=== PATIENT | male | born 1965 | race Caucasian/White ===

== ENCOUNTER 2018-02-18 21:08 | Emergency (ER) | payer SELFPAY ==
[2018-02-18] MEDS ORDERED: traMADol TAB* 50 MG PO ONE (21:30)
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
[2018-02-18 22:50] VITALS: BP 135/88
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
== END 2018-02-18 22:45 | disposition home or self-care (01) ==
LOC: ED 21:08
DX: R07.9 Chest pain, unspecified (principal); V49.9XXA Car occupant (driver) (passenger) injured in unspecified traffic accident, initial encounter; Y92.9 Unspecified place or not applicable; M54.9 Dorsalgia, unspecified
CPT/HCPCS: 71250; 99282; A9270-GY

== ENCOUNTER 2022-03-31 07:34 | Inpatient (IN) ==
[2022-03-31 08:34] LABS: ABS Eosinophils 0.2 10^3/ul (0-0.6); ABS Lymphocytes 0.7 10^3/ul (1.0-4.8); ABS Monocytes 0.7 10^3/ul (0-0.8); ABS Neutrophils 6.8 10^3/ul (1.5-7.7); Eosinophil % 2.2 %; Hematocrit 39 % (42-52); Hemoglobin 13.5 g/dL (14.0-18.0); Mean Corpuscular HGB Conc 35 g/dL (31-36); Mean Corpuscular Hemoglobin 31 pg (27-31); Mean Corpuscular Volume 89 fL (80-94); Mean Platelet Volume 7.4 fL (7.4-10.4); Platelet Count 318 10^3/uL (150-450); Red Blood Count 4.42 10^6 /uL (4.18-5.48); Red Cell Distribution Width 13 % (10-15); White Blood Count 8.4 10^3/uL (3.5-10.8)
[2022-03-31 09:07] LABS: Albumin 3.9 g/dL (3.2-5.2); Albumin/Globulin Ratio 1.3 (1-3); C Reactive Protein 154.98 mg/L (<8.01); Calcium 8.8 mg/dL (8.6-10.3); Potassium 4.4 mmol/L (3.5-5.0); Total Bilirubin 0.8 mg/dL (0.2-1.0); Total Protein 6.9 g/dL (6.4-8.9); eGFR CKD-EPI 80.4 (>60)
[2022-03-31 10:50] LABS: Erythrocyte Sed Rate 58 mm/Hr (0-19)
[2022-03-31] MEDS ORDERED: Ondansetron 4 mg VIAL 2 MG/ML 2 ml VIAL IV PRN (10:50)
[2022-03-31] MEDS ORDERED: Ondansetron ODT 4 mg TAB 4 MG TAB PO PRN (10:50)
[2022-03-31] MEDS ORDERED: Magnesium Hydroxide LIQ 30 ML UDC PO PRN (10:50)
[2022-03-31] MEDS ORDERED: Morphine 2 MG/ML SYRINGE IV PRN (10:50)
[2022-03-31] MEDS ORDERED: Lactulose 30 ml UDC PO PRN (10:50)
[2022-03-31] MEDS ORDERED: PHENYLEPHRINE HCL 10 MG PO PRN (10:55)
[2022-03-31] MEDS ORDERED: Vancomycin per Pharmacy 1 EA NOTE FOLLOW UP SCH (11:00)
[2022-03-31] MEDS ORDERED: Vancomycin 1,750 MG in NS 0.9% 500 ml BAG 500 ML IVPB ONE (12:00)
[2022-03-31] MEDS ORDERED: Cefepime 2 GM IV - ED ONCE IV ONE (12:00)
[2022-03-31] MEDS: Lactated Ringers 1000 ml BAG 1,000 ML IV SCH (14:25)
[2022-03-31 15:03] LABS: Body Fluid Mono 19 %; Body Fluid NRBC 7; Body Fluid Total Cells Counted 200; Body Fluid WBC 234 /mcL
[2022-03-31 15:10] LABS: Body Fluid Source Synovial Fluid
[2022-03-31 15:11] LABS: Body Fluid Appearance Clear; Body Fluid Color Yellow
[2022-03-31 16:33] LABS: ABS Eosinophils 0.1 10^3/ul (0-0.6); ABS Lymphocytes 0.9 10^3/ul (1.0-4.8); ABS Monocytes 0.8 10^3/ul (0-0.8); ABS Neutrophils 7.3 10^3/ul (1.5-7.7); Eosinophil % 1.1 %; Hematocrit 39 % (42-52); Hemoglobin 13.3 g/dL (14.0-18.0); Lymphocyte % 9.7 %; Mean Corpuscular HGB Conc 34 g/dL (31-36); Mean Corpuscular Hemoglobin 30 pg (27-31); Mean Corpuscular Volume 89 fL (80-94); Mean Platelet Volume 7.2 fL (7.4-10.4); Platelet Count 296 10^3/uL (150-450); Red Blood Count 4.42 10^6 /uL (4.18-5.48); Red Cell Distribution Width 14 % (10-15); White Blood Count 9.1 10^3/uL (3.5-10.8)
[2022-03-31 16:51] LABS: Activated Partial Thrombo Time 33.8 seconds (26.0-38.0); INR 1.17 (0.86-1.15)
[2022-03-31 17:15] LABS: eGFR CKD-EPI 82.3 (>60)
[2022-03-31] MEDS ORDERED: Heparin 5000 UNITS/ML 1 mL VIAL SUBCUT SCH (21:00)
[2022-03-31] MEDS: Magnesium Hydroxide LIQ 30 ML UDC PO SCH (21:56)
[2022-03-31] MEDS ORDERED: Cefepime 2 GM in Dextrose 2 GM/50 ML BAG IV SCH (23:00)
[2022-04-01] MEDS: Vancomycin 1,250 MG in NS 0.9% 250 ml 250 ML IVPB SCH ×2 (05:33→17:28)
[2022-04-01 07:11] LABS: ABS Eosinophils 0.2 10^3/ul (0-0.6); ABS Lymphocytes 0.7 10^3/ul (1.0-4.8); ABS Monocytes 0.8 10^3/ul (0-0.8); ABS Neutrophils 5.8 10^3/ul (1.5-7.7); Eosinophil % 2.5 %; Hematocrit 36 % (42-52); Hemoglobin 12.4 g/dL (14.0-18.0); Lymphocyte % 9.8 %; Mean Corpuscular HGB Conc 34 g/dL (31-36); Mean Corpuscular Hemoglobin 31 pg (27-31); Mean Corpuscular Volume 90 fL (80-94); Mean Platelet Volume 7.2 fL (7.4-10.4); Platelet Count 305 10^3/uL (150-450); Red Blood Count 4.07 10^6 /uL (4.18-5.48); Red Cell Distribution Width 13 % (10-15); White Blood Count 7.5 10^3/uL (3.5-10.8)
[2022-04-01 08:14] LABS: C Reactive Protein 138.67 mg/L (<8.01); Calcium 8.7 mg/dL (8.6-10.3); Potassium 4.7 mmol/L (3.5-5.0); eGFR CKD-EPI 96.4 (>60)
[2022-04-01] MEDS: Vitamin THERAPEUTIC TAB PO SCH (10:06)
[2022-04-01] MEDS: Magnesium Hydroxide LIQ 30 ML UDC PO SCH ×2 (10:10→22:16)
[2022-04-01] MEDS: Lactated Ringers 1000 ml BAG 1,000 ML IV SCH (11:29)
[2022-04-01 13:06] LABS: ABS Eosinophils 0.2 10^3/ul (0-0.6); ABS Lymphocytes 0.8 10^3/ul (1.0-4.8); ABS Monocytes 0.7 10^3/ul (0-0.8); ABS Neutrophils 5.5 10^3/ul (1.5-7.7); Eosinophil % 2.2 %; Hematocrit 38 % (42-52); Hemoglobin 12.7 g/dL (14.0-18.0); Lymphocyte % 10.7 %; Mean Corpuscular HGB Conc 33 g/dL (31-36); Mean Corpuscular Hemoglobin 30 pg (27-31); Mean Corpuscular Volume 89 fL (80-94); Platelet Count 321 10^3/uL (150-450); Red Blood Count 4.28 10^6 /uL (4.18-5.48); Red Cell Distribution Width 13 % (10-15); White Blood Count 7.2 10^3/uL (3.5-10.8)
[2022-04-01 13:14] LABS: Activated Partial Thrombo Time 34.4 seconds (26.0-38.0); INR 1.13 (0.86-1.15)
[2022-04-01 13:43] LABS: eGFR CKD-EPI 99.3 (>60)
[2022-04-01] MEDS: Heparin 5000 UNITS/ML 1 mL VIAL SUBCUT SCH ×2 (14:09→22:16)
[2022-04-02] MEDS: Lactated Ringers 1000 ml BAG 1,000 ML IV SCH (00:41)
[2022-04-02] MEDS ORDERED: Vancomycin Trough Check NOTE FOLLOW UP ONE (05:30)
[2022-04-02 06:01] LABS: ABS Eosinophils 0.2 10^3/ul (0-0.6); ABS Lymphocytes 1.2 10^3/ul (1.0-4.8); ABS Monocytes 0.7 10^3/ul (0-0.8); ABS Neutrophils 4.4 10^3/ul (1.5-7.7); Eosinophil % 2.9 %; Hematocrit 38 % (42-52); Hemoglobin 12.7 g/dL (14.0-18.0); Lymphocyte % 18.2 %; Mean Corpuscular HGB Conc 34 g/dL (31-36); Mean Corpuscular Hemoglobin 30 pg (27-31); Mean Corpuscular Volume 90 fL (80-94); Mean Platelet Volume 7.1 fL (7.4-10.4); Platelet Count 333 10^3/uL (150-450); Red Blood Count 4.17 10^6 /uL (4.18-5.48); Red Cell Distribution Width 13 % (10-15); White Blood Count 6.6 10^3/uL (3.5-10.8)
[2022-04-02 06:50] LABS: C Reactive Protein 119.1 mg/L (<8.01); Calcium 8.8 mg/dL (8.6-10.3); Potassium 4.6 mmol/L (3.5-5.0); eGFR CKD-EPI 99.7 (>60)
[2022-04-02] MEDS: Vancomycin 1,250 MG in NS 0.9% 250 ml 250 ML IVPB SCH ×2 (07:14→17:28)
[2022-04-02] MEDS: Vitamin THERAPEUTIC TAB PO SCH (08:42)
[2022-04-02] MEDS: Magnesium Hydroxide LIQ 30 ML UDC PO SCH ×2 (08:42→21:49)
[2022-04-02] MEDS: Heparin 5000 UNITS/ML 1 mL VIAL SUBCUT SCH ×2 (08:42→21:49)
[2022-04-03] MEDS: Lactated Ringers 1000 ml BAG 1,000 ML IV SCH ×2 (01:44→13:30)
[2022-04-03 05:31] LABS: ABS Eosinophils 0.3 10^3/ul (0-0.6); ABS Lymphocytes 1.3 10^3/ul (1.0-4.8); ABS Monocytes 0.7 10^3/ul (0-0.8); Eosinophil % 4.2 %; Hematocrit 36 % (42-52); Mean Corpuscular HGB Conc 34 g/dL (31-36); Mean Corpuscular Hemoglobin 30 pg (27-31); Mean Corpuscular Volume 89 fL (80-94); Mean Platelet Volume 7.4 fL (7.4-10.4); Platelet Count 349 10^3/uL (150-450); Red Blood Count 3.98 10^6 /uL (4.18-5.48); Red Cell Distribution Width 13 % (10-15); White Blood Count 6.3 10^3/uL (3.5-10.8)
[2022-04-03 05:33] LABS: ABS Eosinophils 0.3 10^3/ul (0-0.6); ABS Lymphocytes 1.3 10^3/ul (1.0-4.8); ABS Monocytes 0.8 10^3/ul (0-0.8); ABS Neutrophils 4.1 10^3/ul (1.5-7.7); Eosinophil % 4.8 %; Hematocrit 37 % (42-52); Lymphocyte % 19.8 %; Mean Corpuscular HGB Conc 33 g/dL (31-36); Mean Corpuscular Hemoglobin 29 pg (27-31); Mean Corpuscular Volume 89 fL (80-94); Mean Platelet Volume 7.2 fL (7.4-10.4); Nucleated Red Blood Cells % 0.1; Platelet Count 343 10^3/uL (150-450); Red Cell Distribution Width 13 % (10-15); White Blood Count 6.5 10^3/uL (3.5-10.8)
[2022-04-03] MEDS: Vancomycin 1,250 MG in NS 0.9% 250 ml 250 ML IVPB SCH (06:25)
[2022-04-03] MEDS: Heparin 5000 UNITS/ML 1 mL VIAL SUBCUT SCH (08:55)
[2022-04-03] MEDS: Vitamin THERAPEUTIC TAB PO SCH (08:55)
[2022-04-03] MEDS: Magnesium Hydroxide LIQ 30 ML UDC PO SCH (08:55)
[2022-04-03 12:38] VITALS: BP 121/80
== END 2022-04-03 16:00 | disposition home or self-care (01) | DRG 351 ==
LOC: ED 07:34 → SUATTDRO 10:50 → EDHOLD 10:50 → SSU 13:45
PROVIDERS: ADMIT Orthopaedic Surgery Adult Reconstructive Orthopaedic Surgery; ATTEND Orthopaedic Surgery Adult Reconstructive Orthopaedic Surgery